=== PATIENT | female | born 1980 | race Two or more races ===

== ENCOUNTER 2022-08-27 15:37 | Emergency (ER) | payer BC, OTHER ==
[~2022-08-27] VITALS: Ht 162.6 cm; Wt 65.3 kg
[2022-08-27 16:05] VITALS: BP 127/85
[2022-08-27] MEDS ORDERED: KETOROLAC TROMETH 60MG/2ML VIAL IM ONE (16:15)
[2022-08-27] MEDS ORDERED: IBUP800T27 PO (16:58)
[2022-08-27] MEDS ORDERED: METH500T22 PO (16:58)
== END 2022-08-27 17:10 | disposition home or self-care (01) ==
LOC: EEVIPCON 15:37 → ER 15:37
DX: S39.012A Strain of muscle, fascia and tendon of lower back, initial encounter (principal); S16.1XXA Strain of muscle, fascia and tendon at neck level, initial encounter; S20.219A Contusion of unspecified front wall of thorax, initial encounter; Z88.6 Allergy status to analgesic agent; Z91.013 Allergy to seafood; V43.52XA Car driver injured in collision with other type car in traffic accident, initial encounter; Y93.89 Activity, other specified; Y92.410 Unspecified street and highway as the place of occurrence of the external cause; Y99.8 Other external cause status
CPT/HCPCS: 71046; 72040; 72100; 96372; 99284; J1885